=== PATIENT | male | born 1945 | race Caucasian/White ===

== ENCOUNTER 2017-02-16 19:25 | Emergency (ER) | payer MEDICARE, OTHER ==
[2017-02-16 21:01] LABS: CHLORIDE,CL 104 mmol/L (101-111); SODIUM,NA 139 mmol/L (135-145)
--- NOTE | 2017-02-16 22:32 | EDM.PDOC ---
ED HISTORY OF PRESENT ILLNESS - General Chief Complaint: Chest Pain Stated Complaint: CHEST PAINS, [id number] Time Seen by Provider: 02/16/17 21:42 Source of Information: Reports: Patient History Limitations: Reports: No limitations - History of Present Illness INITIAL COMMENTS - FREE TEXT/NARRATIVE: This 71 yo male patient reports to the ED with intermittent chest pains. The patient reports he has had some "twinges" of pain in his right upper chest starting this morning, and again this evening. The patient reports he has been struggling with his BiPap machine over the past several weeks and has not been able to manage to sleep well due to the machine alarming frequently. Symptom Onset Date: 02/16/17 Timing/Duration: Reports: Intermittent Severity: moderate Location, General: Reports: chest Quality: Reports: Dull Improves with: Reports: None Worsens with: Reports: None Context, General: Reports: Other Associated Symptoms (General): Reports: no other symptoms - Related Data Allergies/ADRs: Allergies Allergy/AdvReac Type Severity Reaction Status Date / Time No Known Allergies Allergy Verified 02/16/17 22:28 Home Meds: Home Meds Chlorthalidone [Chlorthalidone] 25 mg PO DAILY 10/04/14 [History] Pantoprazole [Protonix] 40 mg PO DAILY 10/04/14 [History] atorvaSTATin Calcium [Atorvastatin Calcium] 20 mg PO 10/04/14 [History] Social & Family History - Tobacco Use Smoking Status *Q: Never Smoker - Alcohol Use Days Per Week of Alcohol Use: 1 Number of Drinks Per Day: 1 Total Drinks Per Week: 1 - Recreational Drug Use Recreational Drug Use: No ED ROS GENERAL - Review of Systems Review Of Systems: ROS reveals no pertinent complaints other than HPI. ED EXAM, GENERAL - Physical Exam Exam: See Below Exam Limited By: No limitations General Appearance: alert, WD/WN, anxious, mild distress Eye Exam: bilateral eye: EOMI, normal inspection, PERRL Ears: normal external exam, normal canal, hearing grossly normal, normal TMs Nose: normal inspection, normal mucosa, no blood Throat/Mouth: Normal inspection, Normal lips, Normal teeth, Normal gums, Normal oropharynx, Normal voice, No airway compromise Head: atraumatic, normocephalic Neck: normal inspection, supple, non-tender, full range of motion Respiratory/Chest: no respiratory distress, lungs clear, normal breath sounds, no accessory muscle use, chest non-tender Cardiovascular: normal peripheral pulses, regular rate, rhythm, no edema, no gallop, no JVD, no murmur, no rub GI/Abdominal: normal bowel sounds, soft, non tender, no organomegaly, no distention, no abnormal bruit, no mass (Male) Exam: Deferred Rectal (Males) Exam: Deferred Back Exam: normal inspection, full range of motion, NT Extremities: normal inspection, normal range of motion, non-tender, normal capillary refill, no pedal edema Neurological: alert, oriented, CN II-XII intact, normal cognition, normal gait, normal reflexes, no motor/sensory deficits Psychiatric: normal affect, normal mood Skin Exam: Warm, Dry, Intact, Normal color, No rash Lymphatic: no adenopathy Course - Vital Signs Last Recorded V/S: Last Vital Signs Temp 36.9 C 02/16/17 20:10 Pulse 63 02/16/17 20:10 Resp 17 02/16/17 20:10 BP 114/68 02/16/17 20:10 Pulse Ox 94 L 02/16/17 20:10 - Orders/Labs/Meds Orders: Active Orders 24 hr Category Date Time Status EKG Documentation Completion [RC] URGENT Care 02/16/17 20:29 Active Chest 2V [CR] Urgent Exams 02/16/17 21:52 Ordered Labs: Laboratory Tests 02/16/17 02/16/17 Range/Units 20:29 20:29 WBC 11.0 H (5.0-10.0) 10^3/uL RBC 4.79 (4.6-6.2) 10^6/uL Hgb 14.9 (14.0-18.0) g/dL Hct 43.2 (40.0-54.0) % MCV 90.2 (80-100) fL MCH 31.1 (27.0-34.0) pg MCHC 34.5 (33.0-35.0) g/dL Plt Count 240 (150-450) 10^3/uL Neut % (Auto) 68.0 (42.2-75.2) % Lymph % (Auto) 21.4 (20.5-50.1) % [place] % (Auto) 9.3 H (2-8) % Eos % (Auto) 1.0 (1.0-3.0) % Baso % (Auto) 0.3 (0.0-1.0) % Sodium 139 (135-145) mmol/L Potassium 3.0 L (3.6-5.0) mmol/L Chloride 104 (101-111) mmol/L Carbon Dioxide 28.0 (21.0-31.0) mmol/L Anion Gap 10.0 BUN 19 H (7-18) mg/dL Creatinine 0.8 (0.6-1.3) mg/dL Est Cr Clr Drug Dosing TNP Estimated GFR (MDRD) > 60 BUN/Creatinine Ratio 23.75 Glucose 137 H (74-105) mg/dL Calcium 9.2 (8.4-10.2) mg/dl Total Bilirubin 0.5 (0.2-1.0) mg/dL AST 18 (10-42) IU/L ALT 18 (10-60) IU/L Alkaline Phosphatase 35 L (42-121) IU/L Troponin I < 0.02 (0.00-0.02) ng/ml Total Protein 6.7 (6.7-8.2) g/dl Albumin 4.0 (3.2-5.5) g/dl Globulin 2.7 Albumin/Globulin Ratio 1.48 Departure - Departure Time of Disposition: 22:30 Disposition: Home, Self-Care 01 Condition: fair Clinical Impression: Non-cardiac chest pain Instructions: Nonspecific Chest Pain, [id number] Forms: ED Department Discharge Care Plan Goals: The patient was advised of the examination, lab, EKG and x-ray results during the visit. The patient was encouraged to contact the [employer] for additional fittings of his mask. If the patient has any additional symptoms or concerns, the patient should follow-up with her primary care facility or return to the emergency department. - My Orders Last 24 Hours: My Active Orders 02/16/17 20:29 EKG Documentation Completion [RC] URGENT 02/16/17 21:52 Chest 2V [CR] Urgent - Assessment/Plan Last 24 Hours: My Active Orders 02/16/17 20:29 EKG Documentation Completion [RC] URGENT 02/16/17 21:52 Chest 2V [CR] Urgent
[2017-02-16 23:08] VITALS: BP 146/89
--- NOTE | 2017-02-23 12:51 | EKG ---
02/16/2017 - SALVADOR LEPE I reviewed the EKG and agree with the machine's reading. [facility] /[id number]
== END 2017-02-16 22:37 | disposition home or self-care (01) ==
LOC: DL.ED 19:25
DX: R07.89 Other chest pain (principal); Z79.899 Other long term (current) drug therapy
CPT/HCPCS: 36415; 71020; 80053; 84484; 85025; 93005; 93010; 99284; 99285

== ENCOUNTER 2018-03-05 11:48 | Emergency (ER) | payer MEDICARE, OTHER ==
[2018-03-05] MEDS ORDERED: Sodium Chloride 0.9% 10 ML Syringe FLUSH PRN (12:07)
[2018-03-05 12:49] LABS: CHLORIDE,CL 97 mmol/L (101-111); SODIUM,NA 136 mmol/L (135-145)
[2018-03-05] MEDS ORDERED: Morphine 2 MG/ML Syringe IVPUSH ONE ×2 (12:55→15:51)
[2018-03-05] MEDS ORDERED: Iopamidol 612 MG/ML 100 ML Bottle IVPUSH ONE (13:00)
--- NOTE | 2018-03-05 13:35 | CT ---
Clinical history: 72-year-old hypertensive 200 pound male with "umbilical hernia" and abdominal pain reported on previous CT scan abdomen May 2008 to have "prostatic calcifications, right renal calcu scooby, normal appendix, and distal colonic diverticulosis". Scan technique: Volume acquisition of data from the abdomen and pelvis obtained without oral contrast but during/after intravenous administration 100 cc nonionic Isovue (2 cc/s via injector) while patie nt was lying supine on the Siemens multi slice scanner [facility]. All data archived in the PACS system for storage, reformatting axial/sagittal/coronal planes and s tudy. Interpretation: Abnormal. 1. *Approximately 2.5 cm diameter, infraumbilical, ventral wall defect with herniated and incarcerate d "knuckle" of small intestine. 2. No other ventral wall/inguinal defects, hernias, current signs mechanical bowel obstruction (fluid -filled bowel without A/F levels). 3. No pelvic or abdominal mass lesion, mesenteric or retroperitone al lymphadenopathy, inflammatory "dirty" peritoneal fat, signs of mechanical bowel obstruction, ascit es or free intraperitoneal air. 4. Numerous diverticula sigmoid colon without associated signs of inflammation, abscess or mechanical obstruction. 5. Desiccation scattered course of normal caliber ectatic abdominal aorta. 6. Tiny benign-appearing intrahepatic cysts. Distended gallbladder unremarkable without sign of intra luminal stones. 7. Stomach, spleen, pancreas unremarkable. No sign of solid renal cortical mass lesion, nephrolithias is or obstructive uropathy. Solitary tiny cortical cyst upper pole left kidney and apparent small adrenal adenomas bilaterally. CONCLUSION: Incarcerated ventral wall hernia.
--- NOTE | 2018-03-05 14:14 | EDM.PDOC ---
ED HPI GENERAL MEDICAL PROBLEM - General Chief Complaint: Abdominal Pain Stated Complaint: ABD PAIN Time Seen by Provider: 03/05/18 12:22 Source of Information: Reports: Patient, RN, RN Notes Reviewed History Limitations: Reports: No Limitations - History of Present Illness INITIAL COMMENTS - FREE TEXT/NARRATIVE: Patient presents to ER with complaint of abdominal pain that began about 10:30. He has an umbilical hernia protruding more with increased pain. He has had increased activity and lifting past few days. He has 2 small bowel movements this A.M. and soft. He has chills. He has had no fever, nausea, vomiting, diarrhea, chest pain and shortness of breath. Onset: Today Duration: Getting Worse Location: Reports: Abdomen Quality: Reports: Ache Severity: Severe Improves with: Reports: None Worsens with: Reports: None Associated Symptoms: Reports: No Other Symptoms Middle Anterior Abdomen Pain Score (Numeric/FACES): 10 - Related Data Allergies Allergy/AdvReac Type Severity Reaction Status Date / Time No Known Allergies Allergy Verified 02/16/17 22:28 Home Meds: Home Meds Chlorthalidone 25 mg PO DAILY 10/04/14 [History] Pantoprazole [Protonix] 40 mg PO DAILY 10/04/14 [History] atorvaSTATin Calcium [Atorvastatin Calcium] 10 mg PO BEDTIME 10/04/14 [History] Acetaminophen [Tylenol Extra Strength] 500 mg PO DAILY 02/16/17 [History] Aspirin 81 mg PO DAILY 02/16/17 [History] Glucosamine/D3/Boswellia Hailey [Osteo Bi-Flex Caplet] 1 each PO DAILY 02/16/17 [ History] diphenhydrAMINE HCl [Benadryl] 25 mg PO ASDIRECTED PRN 02/16/17 [History] Past Medical History HEENT History: Reports: Impaired Vision Other HEENT History: wears corrective lenses Cardiovascular History: Reports: High Cholesterol, Hypertension Respiratory History: Reports: Sleep Apnea Other Respiratory History: uses BiPap at night Gastrointestinal History: Reports: Gastritis, GERD Genitourinary History: Reports: None Musculoskeletal History: Reports: Arthritis Social & Family History - Family History Family Medical History: Noncontributory - Tobacco Use Smoking Status *Q: Never Smoker - Caffeine Use Caffeine Use: Reports: Coffee - Recreational Drug Use Recreational Drug Use: No ED ROS GENERAL - Review of Systems Review Of Systems: ROS reveals no pertinent complaints other than HPI. ED EXAM, GI/ABD - Physical Exam Exam: See Below Exam Limited By: No Limitations General Appearance: Alert, WD/WN, No Apparent Distress Eyes: Bilateral: Normal Appearance, EOMI Ears: Normal External Exam, Normal Canal, Hearing Grossly Normal, Normal TMs Nose: Normal Inspection, Normal Mucosa, No Blood Throat/Mouth: Normal Inspection, Normal Lips, Normal Teeth, Normal Gums, Normal Oropharynx, Normal Voice, No Airway Compromise Head: Atraumatic, Normocephalic Neck: Normal Inspection, Supple, Non-Tender, Full Range of Motion Respiratory/Chest: No Respiratory Distress Cardiovascular: Normal Peripheral Pulses, Regular Rate, Rhythm, No Edema, No Gallop, No JVD, No Murmur, No Rub GI/Abdominal Exam: Other (baseball sized umbilical hernia otherwise soft and tender. ) (Male) Exam: Deferred Rectal (Males) Exam: Deferred Back Exam: Normal Inspection, Full Range of Motion, NT Extremities: Normal Inspection, Normal Range of Motion, Non-Tender, Normal Capillary Refill, No Pedal Edema Neurological: Alert, Oriented, CN II-XII Intact, Normal Cognition, Normal Gait, Normal Reflexes, No Motor/Sensory Deficits Psychiatric: Normal Affect, Normal Mood Skin Exam: Warm, Dry, Intact, Normal Color, No Rash Lymphatic: No Adenopathy Course - Vital Signs Last Recorded V/S: Last Vital Signs Temp 96.9 F 03/05/18 15:02 Pulse 61 03/05/18 15:02 Resp 16 03/05/18 15:02 BP 140/66 03/05/18 15:02 Pulse Ox 97 03/05/18 15:02 - Orders/Labs/Meds Orders: Active Orders 24 hr Category Date Time Status EKG Documentation Completion [RC] STAT Care 03/05/18 12:08 Active Peripheral IV Care [RC] . DIRECTED Care 03/05/18 12:08 Active UA W/MICROSCOPIC [URIN] Stat Lab 03/05/18 12:32 Ordered Sodium Chloride 0.9% [Saline Flush] Med 03/05/18 12:07 Active 10 ml FLUSH ASDIRECTED PRN Peripheral IV Insertion Adult [OM.PC] Stat Oth 03/05/18 12:08 Ordered Medication Orders Sodium Chloride (Saline Flush) 10 ml FLUSH ASDIRECTED PRN PRN Reason: Keep Vein Open Last Admin: 03/05/18 13:01 Dose: 10 ml Labs: Laboratory Tests 03/05/18 03/05/18 03/05/18 Range/Units 12:20 12:20 12:32 WBC 11.9 H (5.0-10.0) 10^3/uL RBC 4.76 (4.6-6.2) 10^6/uL Hgb 14.9 (14.0-18.0) g/dL Hct 43.0 (40.0-54.0) % MCV 90.3 (80-100) fL MCH 31.3 (27.0-34.0) pg MCHC 34.7 (33.0-35.0) g/dL Plt Count 243 (150-450) 10^3/uL Neut % (Auto) 75.7 H (42.2-75.2) % Lymph % (Auto) 13.5 L (20.5-50.1) % [place] % (Auto) 10.0 H (2-8) % Eos % (Auto) 0.5 L (1.0-3.0) % Baso % (Auto) 0.3 (0.0-1.0) % Sodium 136 (135-145) mmol/L Potassium 3.1 L (3.6-5.0) mmol/L Chloride 97 L (101-111) mmol/L Carbon Dioxide 26.0 (21.0-31.0) mmol/L Anion Gap 16.1 BUN 16 (7-18) mg/dL Creatinine 0.8 (0.6-1.3) mg/dL Est Cr Clr Drug Dosing 83.13 mL/min Estimated GFR (MDRD) > 60 BUN/Creatinine Ratio 20.00 Glucose 160 H (74-105) mg/dL Calcium 9.3 (8.4-10.2) mg/dl Total Bilirubin 0.5 (0.2-1.0) mg/dL AST 23 (10-42) IU/L ALT 24 (10-60) IU/L Alkaline Phosphatase 35 L (42-121) IU/L Troponin I < 0.02 (0.00-0.02) ng/ml Total Protein 6.7 (6.7-8.2) g/dl Albumin 4.0 (3.2-5.5) g/dl Globulin 2.7 Albumin/Globulin Ratio 1.48 Amylase 47 (28-100) U/L Lipase 15 L (22-51) U/L Urine Color Yellow (YELLOW) Urine Appearance Slightly cloudy (CLEAR) Urine pH 7.0 (5.0-9.0) Ur Specific [place] 1.020 (1.005-1.030) Urine Protein Negative (NEGATIVE) Urine Glucose (UA) Negative (NEGATIVE) Urine Ketones 40 H (NEGATIVE) Urine Occult Blood Negative (NEGATIVE) Urine Nitrite Negative (NEGATIVE) Urine Bilirubin Small H (NEGATIVE) Urine Urobilinogen 1.0 (0.2-1.0) mg/dL Ur Leukocyte Esterase Negative (NEGATIVE) Urine RBC 0-5 /HPF Urine WBC 0-5 (0-5/HPF) /HPF Ur Epithelial Cells Rare /HPF Amorphous Sediment Rare (0/HPF) /HPF Urine Bacteria Rare (0-FEW/HPF) /HPF Urine Mucus Rare /LPF Meds: Medications Generic Name Dose Route Start Last Admin Trade Name Freq PRN Reason Stop Dose Admin Sodium Chloride 10 ml 03/05/18 12:07 03/05/18 13:01 Saline Flush FLUSH 10 ml ASDIRECTED PRN Administration Keep Vein Open Discontinued Medications Generic Name Dose Route Start Last Admin Trade Name Freq PRN Reason Stop Dose Admin Iopamidol 100 ml 03/05/18 13:00 03/05/18 13:10 Isovue-300 (61%) IVPUSH 03/05/18 13:01 100 ml ONETIME ONE Administration Morphine Sulfate 2 mg 03/05/18 12:55 03/05/18 12:59 Morphine IVPUSH 03/05/18 12:56 2 mg ONETIME ONE Administration Morphine Sulfate 2 mg 03/05/18 14:22 03/05/18 14:27 Morphine IVPUSH 03/05/18 14:23 2 mg ONETIME ONE Administration - Radiology Interpretation Free Text/Narrative:: Abdomen/Pelvis CT: Incarcerated ventral wall hernia Departure - Departure Time of Disposition: 15:08 Disposition: DC/Tfer to Acute Hospital 02 Condition: Fair Clinical Impression: Incarcerated umbilical hernia Abdominal pain Qualifiers: Abdominal location: upper abdomen, unspecified Qualified Code(s): R10.10 - Upper abdominal pain, unspecified - Discharge Information Referrals: PCP,None [Primary Care Provider] - Forms: ED Department Discharge, Interfacility Transfer EMTALA Additional Instructions: NOTHING to eat or drink Present to the ER in [place] Go directly to [place]. No stops - My Orders Last 24 Hours: My Active Orders 03/05/18 12:07 Sodium Chloride 0.9% [Saline Flush] 10 ml FLUSH ASDIRECTED PRN 03/05/18 12:08 EKG Documentation Completion [RC] STAT Peripheral IV Care [RC] . DIRECTED Peripheral IV Insertion Adult [OM.PC] Stat 03/05/18 12:32 UA W/MICROSCOPIC [URIN] Stat - Assessment/Plan Last 24 Hours: My Active Orders 03/05/18 12:07 Sodium Chloride 0.9% [Saline Flush] 10 ml FLUSH ASDIRECTED PRN 03/05/18 12:08 EKG Documentation Completion [RC] STAT Peripheral IV Care [RC] . DIRECTED Peripheral IV Insertion Adult [OM.PC] Stat 03/05/18 12:32 UA W/MICROSCOPIC [URIN] Stat
[2018-03-05] MEDS ORDERED: Morphine 10 MG/ML Syringe IVPUSH ONE (14:22)
[2018-03-05 15:02] VITALS: BP 140/66
[2018-03-05] MEDS ORDERED: Ondansetron 4 MG Tab.DIS PO ONE (15:52)
--- NOTE | 2018-03-09 12:14 | EKG ---
03/05/2018 - SALVADOR LEPE D - TIME: 1217 hours. FINDINGS: EKG shows a heart rate of 49, sinus bradycardia with a right bundle- branch block. [facility] /[id number]
== END 2018-03-05 16:09 ==
LOC: DL.ED 11:48
DX: K42.0 Umbilical hernia with obstruction, without gangrene (principal); E78.00 Pure hypercholesterolemia, unspecified; I10 Essential (primary) hypertension; Z79.899 Other long term (current) drug therapy; Z79.82 Long term (current) use of aspirin
CPT/HCPCS: 36415; 74177; 80053; 81001; 82150; 83690; 84484; 85025; 93005; 96374; 96376; 99285; A9270; J2270; J7050; Q9967

== ENCOUNTER 2019-04-09 16:49 | Emergency (ER) | payer MEDICARE, OTHER ==
[2019-04-09] MEDS ORDERED: Benzonatate 100 MG Cap PO ONE (16:50)
[2019-04-09] MEDS ORDERED: Albuterol 6.7 GM Inhaler INH ONE ×2 (16:50→18:17)
[2019-04-09 16:59] VITALS: BP 140/76
[2019-04-09] MEDS ORDERED: Albuterol/Ipratropium 3.0-0.5 MG/3 ML Neb Soln NEB ONE (17:49)
[2019-04-09] MEDS ORDERED: Benzonatate 100 MG Cap ONE (18:17)
[2019-04-09 18:29] LABS: ANION GAP 14.5; CHLORIDE,CL 102 mmol/L (101-111); SODIUM,NA 138 mmol/L (135-145)
--- NOTE | 2019-04-14 05:53 | EDM.PDOC ---
Scribed by Kaila Aquino 04/09/19 [id number] for Lauri Feliz PA-C ED HPI GENERAL MEDICAL PROBLEM - General Chief Complaint: ENT Problem Time Seen by Provider: 04/09/19 17:07 Source of Information: Reports: Patient, RN, RN Notes Reviewed History Limitations: Reports: No Limitations - History of Present Illness INITIAL COMMENTS - FREE TEXT/NARRATIVE: Patient presents to er with a cough and cold for 3 days with productive clear. Scratchy throat. Decreased appetite. Nyquil x2 today. Onset Date: 04/06/19 Duration: Constant Location: Reports: Other (throat) Quality: Reports: Ache Severity: Mild Improves with: Reports: None Worsens with: Reports: None Associated Symptoms: Reports: No Other Symptoms - Related Data Allergies Allergy/AdvReac Type Severity Reaction Status Date / Time No Known Allergies Allergy Verified 04/09/19 16:57 Home Meds: Home Meds Pantoprazole [Protonix] 40 mg PO DAILY 10/04/14 [History] atorvaSTATin Calcium [Atorvastatin Calcium] 10 mg PO BEDTIME 10/04/14 [History] Acetaminophen [Tylenol Extra Strength] 500 mg PO DAILY 02/16/17 [History] Glucosamine/D3/Boswellia Hailey [Osteo Bi-Flex Caplet] 1 each PO DAILY 02/16/17 [ History] RX: Aspirin 81 mg PO DAILY 02/16/17 [History] Cetirizine [ZyrTEC] 10 mg PO DAILY 04/09/19 [History] Cyanocobalamin (Vitamin B-12) [Vitamin B-12] 1,000 mcg PO DAILY 04/09/19 [ History] Meclizine [Antivert] 25 mg PO TID 04/09/19 [History] Potassium Chloride [Klor-Con 10] 10 meq PO DAILY 04/09/19 [History] RX: Fluticasone Propionate [Flonase] 2 spray [place] DAILY 04/09/19 [History] RX: Melatonin 10 mg PO BEDTIME 04/09/19 [History] Timolol Maleate [Timoptic 0.5% Ophth Soln] 1 drop EYELF BEDTIME 04/09/19 [ History] Past Medical History HEENT History: Reports: Impaired Vision Other HEENT History: wears corrective lenses Cardiovascular History: Reports: High Cholesterol, Hypertension Respiratory History: Reports: Sleep Apnea Other Respiratory History: uses BiPap at night Gastrointestinal History: Reports: Gastritis, GERD Genitourinary History: Reports: None Musculoskeletal History: Reports: Arthritis Social & Family History - Family History Family Medical History: Noncontributory - Caffeine Use Caffeine Use: Reports: Coffee ED ROS ENT - Review of Systems Review Of Systems: ROS reveals no pertinent complaints other than HPI. ED EXAM, ENT - Physical Exam Exam: See Below Exam Limited By: No Limitations General Appearance: Alert, WD/WN, No Apparent Distress, Mild Distress Eye Exam: Bilateral Eye: Normal Inspection Ears: Normal External Exam, Normal TMs, Other (nares red excoriated right. bilateral hearing aides) Nose: Normal Inspection, Normal Mucousa, No Blood Mouth/Throat: Other (throat mild erythema) Head: Atraumatic, Normocephalic Neck: Full Range of Motion, Other (no lymphadenopathy) Respiratory/Chest: No Respiratory Distress, Other (decreased bilateral sounds. No rales, rhonchi or wheezes. ocassional dry cough) Cardiovascular: Regular Rate, Rhythm, No Murmur GI/Abdominal: Normal Bowel Sounds, Soft Extremities: Normal Inspection Neurological: Alert, Oriented, Normal Cognition Psychiatric: Normal Affect Skin: Warm, Dry, Intact, Normal Color Course - Vital Signs Last Recorded V/S: Last Vital Signs Temp 97.5 F 04/09/19 16:57 Pulse 70 04/09/19 16:57 Resp 18 04/09/19 16:57 BP 140/76 04/09/19 16:57 Pulse Ox 99 04/09/19 16:57 - Orders/Labs/Meds Labs: Laboratory Tests 04/09/19 04/09/19 Range/Units 18:03 18:03 WBC 9.7 (5.0-10.0) 10^3/uL RBC 4.97 (4.6-6.2) 10^6/uL Hgb 15.4 (14.0-18.0) g/dL Hct 45.5 (40.0-54.0) % MCV 91.5 (80-100) fL MCH 31.0 (27.0-34.0) pg MCHC 33.8 (33.0-35.0) g/dL Plt Count 223 (150-450) 10^3/uL Neut % (Auto) 63.9 (42.2-75.2) % Lymph % (Auto) 20.5 (20.5-50.1) % [place] % (Auto) 14.2 H (2-8) % Eos % (Auto) 1.1 (1.0-3.0) % Baso % (Auto) 0.3 (0.0-1.0) % Sodium 138 (135-145) mmol/L Potassium 3.5 L (3.6-5.0) mmol/L Chloride 102 (101-111) mmol/L Carbon Dioxide 25.0 (21.0-31.0) mmol/L Anion Gap 14.5 BUN 15 (7-18) mg/dL Creatinine 0.8 (0.6-1.3) mg/dL Est Cr Clr Drug Dosing 81.94 mL/min Estimated GFR (MDRD) > 60 BUN/Creatinine Ratio 18.75 Glucose 103 (74-105) mg/dL Calcium 8.9 (8.4-10.2) mg/dl Total Bilirubin 0.8 (0.2-1.0) mg/dL AST 20 (10-42) IU/L ALT 19 (10-60) IU/L Alkaline Phosphatase 45 (42-121) IU/L Total Protein 7.0 (6.7-8.2) g/dl Albumin 4.1 (3.2-5.5) g/dl Globulin 2.9 Albumin/Globulin Ratio 1.41 Meds: Medications Discontinued Medications Generic Name Dose Route Start Last Admin Trade Name Freq PRN Reason Stop Dose Admin Albuterol Confirm 04/09/19 18:17 Proventil Hfa Administered 04/09/19 18:18 Dose 6.7 gm INH .STK-MED ONE Albuterol 0 gm 04/09/19 16:50 Proventil Hfa INH 04/09/19 16:51 .STK-MED ONE Albuterol/Ipratropium 3 ml 04/09/19 17:49 04/09/19 18:06 Duoneb 3.0-0.5 Mg/3 Ml NEB 04/09/19 17:50 3 ml ONETIME ONE Administration Benzonatate Confirm 04/09/19 18:17 Tessalon Perles Administered 04/09/19 18:18 Dose 400 mg .ROUTE .STK-MED ONE Benzonatate 100 mg 04/09/19 16:50 Tessalon Perles PO 04/09/19 16:51 .[facility] ONE - Radiology Interpretation Free Text/Narrative:: [facility] [place] [facility] Final Radiology Report Call: [phone] assistance Online chat: [email or web address] Name: SALVADOR LEPE Age: 73Years M Date: 04/09/2019 SSN: -- : [id number] Study: XR CHEST 2 VIEWS FRONTAL & LAT Requesting Physician: LAURI FELIZ Images: 2 Addl Studies: Provided Clinical History: Contrast: Contrast Medium: Contrast Amount: Contrast Method: CONFIDENTIALITY STATEMENT This report is intended only for use by the referring physician, and only in accordance with law. If you received this in error, call [phone]. Page 1 of 1 EXAM: XR Chest, 2 Views EXAM DATE/TIME: 04/09/2019 5:54 PM CLINICAL HISTORY: 73 years old, male; Cough and other: Chills TECHNIQUE: Imaging protocol: XR of the chest, 2 views. COMPARISON: CR Chest 2V 02/16/2017 9:59 PM FINDINGS: Lungs: Unremarkable. No consolidation. Pleural space: Unremarkable. No pleural effusion. No pneumothorax. Heart/Mediastinum: Unremarkable. No cardiomegaly. Bones/joints: Unremarkable. IMPRESSION: No acute findings. Thank you for allowing us to participate in the care of your patient. Dictated and Authenticated by: Kevin Devlin MD 04/09/2019 6:12 PM Central Time ([place] & [place]) Departure - Departure Time of Disposition: 18:22 Disposition: Home, Self-Care 01 Condition: Good Clinical Impression: URI with cough and congestion - Discharge Information *PRESCRIPTION DRUG MONITORING PROGRAM REVIEWED*: No *COPY OF PRESCRIPTION DRUG MONITORING REPORT IN PATIENT CLYDE: No Referrals: PCP,None [Ordering Only Provider] - Forms: ED Department Discharge Additional Instructions: humidification muccinex or robitussin per label instructions tesslon perles 200mg every 8 hours as needed for cough albuterol inhaler 2 puffs every 4 hours as needed follow up if symptoms worsen I have read and agree with the documentation that has been completed regarding this visit. By signing this record, I attest that the documentation was completed in my physical presence and is an accurate record of the encounter.
== END 2019-04-09 18:45 | disposition home or self-care (01) ==
LOC: DL.ED 16:49
DX: J06.9 Acute upper respiratory infection, unspecified (principal); I10 Essential (primary) hypertension; M19.90 Unspecified osteoarthritis, unspecified site; Z79.899 Other long term (current) drug therapy; Z79.82 Long term (current) use of aspirin
CPT/HCPCS: 36415; 71046; 80053; 85025; 87081; 87430; 99285; A9270; J7620-GY

== ENCOUNTER 2020-11-23 13:26 | Emergency (ER) | payer MEDICARE, OTHER ==
[2020-11-23] MEDS ORDERED: Sodium Chloride 0.9% 10 ML Syringe FLUSH PRN (13:32)
--- NOTE | 2020-11-23 13:32 | EDM.PDOC ---
ED HPI GENERAL MEDICAL PROBLEM - General Chief Complaint: Chest Pain Stated Complaint: CHEST PAIN @10, STILL THERE, HEART MONITOR Time Seen by Provider: 11/23/20 13:32 Source of Information: Reports: Patient, Old Records, RN, RN Notes Reviewed History Limitations: Reports: No Limitations - History of Present Illness INITIAL COMMENTS - FREE TEXT/NARRATIVE: Pt presents to ER from home by POV with c/o right sided chest pain that has been recurrent for a couple of weeks. Today the pain returned at 1000HRS and has persisted. Pt states he was seen at [facility] by Dr. Fu with chest pain on 11/12/20 when a Zio patch was placed. Pt states he has been tracking the episodes of right sided chest pain. The other episodes since the cardiac cath rn patch has been in place have lasted between 10 minutes and 60 minutes. Pt rates the chest pain 3-4/10, steady, dull, 'annoying.' Pt slightly SOB with pain, sometimes a little dizzy or lightheaded. Currently not dizzy or lightheaded. Denies syncope or radiating chest pain. Denies cough, wheezing, palpitations, orthopnea, or edema. Onset: Today Onset Date: 11/23/20 Onset Time: 10:00 Duration: Constant Location: Reports: Chest Quality: Reports: Ache Severity: Mild Improves with: Reports: None Worsens with: Reports: None chest Pain Score (Numeric/FACES): 4 - Related Data Allergies Allergy/AdvReac Type Severity Reaction Status Date / Time No Known Allergies Allergy Verified 11/23/20 13:43 Home Meds: Home Meds Pantoprazole [Protonix] 40 mg PO DAILY 10/04/14 [History] atorvaSTATin Calcium [Atorvastatin Calcium] 10 mg PO BEDTIME 10/04/14 [History] Acetaminophen [Tylenol Extra Strength] 500 mg PO DAILY 02/16/17 [History] Aspirin 81 mg PO DAILY 02/16/17 [History] Glucosamine/D3/Boswellia Hailey [Osteo Bi-Flex Caplet] 1 each PO DAILY 02/16/17 [History] Cetirizine [ZyrTEC] 10 mg PO DAILY 04/09/19 [History] Cyanocobalamin (Vitamin B-12) [Vitamin B-12] 1,000 mcg PO DAILY 04/09/19 [History] Fluticasone Propionate [Flonase] 2 spray MALCOLM DAILY 04/09/19 [History] Meclizine [Antivert] 25 mg PO TID 04/09/19 [History] Melatonin 10 mg PO BEDTIME 04/09/19 [History] Potassium Chloride [Klor-Con 10] 10 meq PO DAILY 04/09/19 [History] timoloL maleate [Timoptic 0.5% Ophth Soln] 1 drop EYELF BEDTIME 04/09/19 [ History] Past Medical History HEENT History: Reports: Impaired Vision Other HEENT History: wears corrective lenses Cardiovascular History: Reports: High Cholesterol, Hypertension Respiratory History: Reports: Sleep Apnea Other Respiratory History: uses BiPap at night Gastrointestinal History: Reports: Gastritis, GERD Genitourinary History: Reports: None Musculoskeletal History: Reports: Arthritis Neurological History: Reports: Vertigo Psychiatric History: Reports: None Endocrine/Metabolic History: Reports: Obesity/BMI 30+ Hematologic History: Reports: None Immunologic History: Reports: None Oncologic (Cancer) History: Reports: None Dermatologic History: Reports: None - Infectious Disease History Infectious Disease History: Reports: None - Past Surgical History Head Surgeries/Procedures: Reports: None Social & Family History - Family History Family Medical History: No Pertinent Family History - Caffeine Use Caffeine Use: Reports: Coffee - Living Situation & Occupation Occupation: Retired ED ROS GENERAL - Review of Systems Review Of Systems: Comprehensive ROS is negative, except as noted in HPI. ED EXAM, GENERAL - Physical Exam Exam: See Below Exam Limited By: No Limitations General Appearance: Alert, WD/WN, No Apparent Distress Eye Exam: Bilateral Eye: Normal Inspection Nose: Normal Inspection Throat/Mouth: Normal Inspection Head: Atraumatic, Normocephalic Neck: Normal Inspection Respiratory/Chest: No Respiratory Distress, Lungs Clear, Normal Breath Sounds, No Accessory Muscle Use, Chest Non-Tender Cardiovascular: Normal Peripheral Pulses, Regular Rate, Rhythm, No Edema, No Gallop, No JVD, No Murmur GI/Abdominal: Normal Bowel Sounds, Soft, Non-Tender Back Exam: Normal Inspection Extremities: Normal Inspection, Normal Range of Motion, Non-Tender, Normal Capillary Refill, No Pedal Edema Neurological: Alert, Oriented, CN II-XII Intact, Normal Cognition, Normal Gait, No Motor/Sensory Deficits Psychiatric: Normal Affect, Normal Mood Skin Exam: Warm, Dry, Intact, Normal Color, No Rash #1 Interpretation EKG Date: 11/23/20 Time: 13:36 Rhythm: Other (SR with PVCs) Rate (Beats/Min): 59 [place]: Normal P-Wave: Present QRS: RBBB ST-T: Other (nonspecific anterior T wave abnormalities) QT: Normal Comparison: No Change Course - Vital Signs Last Recorded V/S: Last Vital Signs Temp 98.3 F 11/23/20 13:36 Pulse 65 11/23/20 13:36 Resp 21 H 11/23/20 13:36 BP 158/82 H 11/23/20 14:00 Pulse Ox 100 11/23/20 13:36 - Orders/Labs/Meds Orders: Active Orders 24 hr Category Date Time Status EKG 12 Lead [EKG Documentation Completion] [] STAT Care 11/23/20 13:32 Active Peripheral IV Care [RC] . DIRECTED Care 11/23/20 13:33 Active Nitroglycerin [Nitrostat] Med 11/23/20 13:52 Active 0.4 mg SL Q5M PRN Sodium Chloride 0.9% [Saline Flush] Med 11/23/20 13:32 Active 10 ml FLUSH ASDIRECTED PRN Peripheral IV Insertion Adult [OM.PC] Stat Oth 11/23/20 13:33 Ordered Medication Orders Nitroglycerin (Nitrostat) 0.4 mg SL Q5M PRN PRN Reason: Chest Pain Last Admin: 11/23/20 14:00 Dose: 0.4 mg Documented by: JUNIOR Sodium Chloride (Saline Flush) 10 ml FLUSH ASDIRECTED PRN PRN Reason: Keep Vein Open Last Admin: 11/23/20 13:40 Dose: 10 ml Documented by: JUNIOR Labs: Laboratory Tests 11/23/20 11/23/20 11/23/20 Range/Units 13:35 13:35 13:35 WBC 10.3 H (5.0-10.0) 10^3/uL RBC 4.82 (4.6-6.2) 10^6/uL Hgb 15.3 (14.0-18.0) g/dL Hct 44.8 (40.0-54.0) % MCV 92.9 (80-100) fL MCH 31.7 (27.0-34.0) pg MCHC 34.2 (33.0-35.0) g/dL Plt Count 233 (150-450) 10^3/uL Neut % (Auto) 68.3 (42.2-75.2) % Lymph % (Auto) 20.6 (20.5-50.1) % [place] % (Auto) 9.3 H (2-8) % Eos % (Auto) 1.5 (1.0-3.0) % Baso % (Auto) 0.3 (0.0-1.0) % PT 10.4 (9.0-12.0) SEC INR 1.1 (0.9-1.2) APTT 25.2 (22.0-34.0) SEC D-Dimer, Quantitative < 100 (0-400) ng/mL Sodium 139 (136-145) mmol/L Potassium 3.4 L (3.5-5.1) mmol/L Chloride 100 (98-107) mmol/L Carbon Dioxide 31 (21-32) mmol/L Anion Gap 11.4 (7-13) mEq/L BUN 13 (7-18) mg/dL Creatinine 0.86 (0.70-1.30) mg/dL Est Cr Clr Drug Dosing 76.38 mL/min Estimated GFR (MDRD) > 60 BUN/Creatinine Ratio 15.1 (No establ ref range) Glucose 100 H (74-99) mg/dL Calcium 9.0 (8.5-10.1) mg/dL Total Bilirubin 0.4 (0.2-1.0) mg/dL AST 20 (15-37) U/L ALT 27 (16-63) U/L Alkaline Phosphatase 51 (46-116) U/L Troponin I < 0.017 (0.000-0.056) ng/mL B-Natriuretic Peptide 68 (0-100) pg/ml Total Protein 7.1 (6.4-8.2) g/dL Albumin 3.8 (3.4-5.0) g/dL Globulin 3.3 Albumin/Globulin Ratio 1.2 Amylase 55 (25-115) U/L Lipase 51 L (73-393) U/L Meds: Medications Generic Name Dose Route Start Last Admin Trade Name Freq PRN Reason Stop Dose Admin Nitroglycerin 0.4 mg 11/23/20 13:52 11/23/20 14:00 Nitrostat SL 0.4 mg Q5M PRN Administration Chest Pain Sodium Chloride 10 ml 11/23/20 13:32 11/23/20 13:40 Saline Flush FLUSH 10 ml ASDIRECTED PRN Administration Keep Vein Open Discontinued Medications Generic Name Dose Route Start Last Admin Trade Name Ldq PRN Reason Stop Dose Admin Aspirin 324 mg 11/23/20 13:52 11/23/20 13:59 Aspirin PO 11/23/20 13:53 324 mg ONETIME ONE Administration - Radiology Interpretation Free Text/Narrative:: CXR: no acute process per Rad. report. - Re-Assessments/Exams Free Text/Narrative Re-Assessment/Exam: 11/23/20 14:50 Pt has ruled out for acute cardiac ischemia/ME/ACS based on today's Hx, exam, lab & EKG results, and in consideration that he has had the chest pain for nearly 2 weeks. Departure - Departure Time of Disposition: 14:51 Disposition: Home, Self-Care 01 Condition: Good Clinical Impression: Chest pain, atypical Instructions: Nonspecific Chest Pain, Adult Forms: ED Department Discharge Additional Instructions: Follow up in clinic with Dr. Fu next week. Ask Dr. Fu about having a cardiac stress test. Return to ER if you develop new symptoms, or worsening chest pain. Sepsis Event Note (ED) - Focused Exam Vital Signs: Vital Signs Temp Pulse Resp BP BP Pulse Ox 11/23/20 14:00 158/82 H 11/23/20 13:36 98.3 F 65 21 H 183/72 H 100 - My Orders Last 24 Hours: My Active Orders 11/23/20 13:32 EKG 12 Lead [EKG Documentation Completion] [RC] STAT Sodium Chloride 0.9% [Saline Flush] 10 ml FLUSH ASDIRECTED PRN 11/23/20 13:33 Peripheral IV Care [RC] . DIRECTED Peripheral IV Insertion Adult [OM.PC] Stat 11/23/20 13:52 Nitroglycerin [Nitrostat] 0.4 mg SL Q5M PRN - Assessment/Plan Last 24 Hours: My Active Orders 11/23/20 13:32 EKG 12 Lead [EKG Documentation Completion] [RC] STAT Sodium Chloride 0.9% [Saline Flush] 10 ml FLUSH ASDIRECTED PRN 11/23/20 13:33 Peripheral IV Care [RC] . DIRECTED Peripheral IV Insertion Adult [OM.PC] Stat 11/23/20 13:52 Nitroglycerin [Nitrostat] 0.4 mg SL Q5M PRN
[2020-11-23 13:37] VITALS: PULSE 65
[2020-11-23] MEDS ORDERED: Aspirin 81 MG Tab.Chew PO ONE (13:52)
[2020-11-23] MEDS ORDERED: Nitroglycerin 0.4 MG Tab.SL SL PRN (13:52)
--- NOTE | 2020-11-23 13:55 | CR ---
EXAMINATION: Chest 1V Frontal SEX: Male AGE: 74 years CLINICAL HISTORY: 74-year-old male CHEST PAIN. Comparison CXR 09 April 2019. INTERPRETATION: No acute new cardiopulmonary abnormality. 1. Normal cardiac silhouette (external patient monitor leads) unchanged size and configuration since 2019. 2. No pulmonary vascular congestion, cephalization of flow, alveolar edema or dependent pleural effusion. 3. No alveolar consolidation, air bronchograms, or peripheral interstitial "groundglass" lung densities. 4. No new lung mass or hilar lymphadenopathy. 5. Hypertrophic marginal spondylosis. No pneumothorax or pneumomediastinum
[2020-11-23 14:01] VITALS: BP 158/82
[2020-11-23 14:03] LABS: ANION GAP 11.4 mEq/L (7-13); CHLORIDE,CL 100 mmol/L (98-107); SODIUM,NA 139 mmol/L (136-145)
[2020-11-23 14:06] LABS: PTT,PARTIAL THROMBOPLSTIN TIME 25.2 SEC (22.0-34.0)
== END 2020-11-23 14:56 | disposition home or self-care (01) ==
LOC: DL.ED 13:26
DX: R07.89 Other chest pain (principal); E78.00 Pure hypercholesterolemia, unspecified; I10 Essential (primary) hypertension; M19.90 Unspecified osteoarthritis, unspecified site; K21.9 Gastro-esophageal reflux disease without esophagitis; E66.9 Obesity, unspecified; Z68.30 Body mass index [BMI] 30.0-30.9, adult; Z79.82 Long term (current) use of aspirin; Z79.899 Other long term (current) drug therapy
CPT/HCPCS: 36415; 71045; 80053; 82150; 83690; 83880; 84484; 85025; 85379; 85610; 85730; 93005; 99285; A9270